=== PATIENT | male | born 1990 | race Caucasian/White ===

== ENCOUNTER 2020-10-04 15:38 | Observation (INO) | payer SELFPAY ==
[2020-10-04] VITALS (9 sets, daily range): BP systolic 94–129; BP diastolic 50–68; PULSE 110–126; RESP 18–26; TEMP 36.4–37.7; O2SAT 95–99; BMI 32.5
[2020-10-04 16:12] LABS: Add Manual Diff / Slide Review NO; Basophils Absolute Auto 100 /uL (0-100); Basophils Percent Auto 0.3 % (0-2); Eosinophils Absolute Auto 0 /uL (0-450); Eosinophils Percent Auto 0.1 % (2-4); Hematocrit 41.6 % (41-53); Hemoglobin 14.5 g/dL (13.5-17.5); Lymphocytes Absolute Auto 1500 /uL (1100-4500); Lymphocytes Percent Auto 6.6 % (25-40); Mean Corpuscular HGB Conc 34.9 % (30-36); Mean Corpuscular Hemoglobin 30.7 PG (26-34); Monocytes Absolute Auto 900 /uL (0-900); Monocytes Percent Auto 4.2 % (3-14); Neutrophils Absolute Auto 20300 /uL (1500-7000); Neutrophils Percent Auto 88.8 % (50-75); Platelet Count 240 X10^3/uL (150-400); Red Blood Cell Count 4.72 X10^6/uL (4.5-5.9); Red Cell Distribution Width 13.2 % (11.6-14.8); White Blood Cell Count 22.8 X10^3/uL (4.5-11.0)
[2020-10-04 16:18] LABS: INR 1.3 (0.9-1.3); Prothrombin Time 14.9 SECONDS (10.1-12.7)
[2020-10-04 16:20] LABS: PTT Partial Thromboplastin Tim 25 SECONDS (26.4-36.2)
--- NOTE | 2020-10-04 16:26 | ED_ITS ---
HPI - Abdominal Pain <Angel Harrisonrebeca [facility] - Last Filed: 10/04/20 20:45> General Chief Complaint: Abdominal Pain Stated Complaint: abdominal pain Time Seen by Provider: 10/04/20 15:42 Source: patient and other Mode of arrival: Family Vehicle Limitations: no limitations History of Present Illness HPI narrative: This is a 30-year-old male, current vapor, who has past medical history significant for substance abuse and childhood asthma presents to ED with chief complain of tense abdominal pain since last night. Patient reports he had smoked heroin last night. Patient reports the pain is causing him to have short of breath and spasm in muscles. Patient denies associated symptoms such as fever, chills, nausea or vomiting. Patient denies history of similar pain in the past. Patient reports pain increases with tensing abdominal muscle or coughing and improves with relaxing muscles. Patient denies history of blood clots, prolonged bed rest, recent surgery, tumor, recent travel. Patient denies back pain, history of hypertension, Marfan syndrome, AAA. Patient has last eaten at 10:00 a.m. pain is wrapped in sausage but did not aggravated pain. PCP Dr. Tovar and he was referred to ED from walk-in clinic for further evaluation. Related Data Allergies Allergy/AdvReac Type Severity Reaction Status Date / Time No Known Drug Allergies Allergy Verified 10/04/20 16:04 Review of Systems <Angel Harrisonrebeca [facility] - Last Filed: 10/04/20 20:45> Review of Systems Narrative: General: Denies fever, chills, fatigue, malaise, sweats. HEENT: Denies sinus pain, ear pain, sore throat, difficulty swallowing, dizziness. Respiratory: See HPI Cardiovascular: Denies chest pain, palpitations, orthopnea, edema. Gastrointestinal: See HPI : Denies dysuria, frequency, incontinence, hematuria, urinary retention. Musculoskeletal: Denies weakness, joint pain or bony pain. Skin: Denies rash, skin lesions, or other. Neurologic: Denies weakness, headache, numbness, change in speech, confusion, seizures, incoordination. Psychiatric: No concerning psychosocial issues. 12-point review of systems is negative except for those stated above. Patient History <Angel Christyrebeca [facility] Last Filed: 12/11/20 20:45> Medical History (Updated 12/11/20 @ 20:30 by REN Taylor) Asthma Patient denies significant medical history Surgical History (Updated 10/04/20 @ 20:30 by REN Talyor) No significant past surgical history Social History Smoking Status: Current every day smoker Smoking Status: Current every day smoker tobacco type: vaping alcohol intake frequency: 0-2 drinks per day Substance Use Type: marijuana, heroin and methamphetamine Exam <REN Le - Last Filed: 10/04/20 20:45> Narrative Exam Narrative: GEN: Alert, oriented x 3, obese male, and in no acute distress. Head: Normal cephalic, atraumatic. No scalp or temporal tenderness, palpable mass or rash. EYES: Pupils are equal, round, and reactive to light and accommodation. Extraocular muscles are intact bilaterally. There is no subconjunctival hemorrhage, exudate and sclera non-icteric. ENT: Hearing grossly intact. Nose without bleeding, purulent discharge or deviation. Mucous membrane moist, no mucosal lesion. Throat without erythema, tonsillar hypertrophy or exudate. Uvula in midline, airway patent. Neck: Trachea in midline. No JVD, non-tender without lymphadenopathy. No masses or thyroid megaly. Supple, non-tender and no meningeal signs. CARDIAC: Normal tachy rate and rhythm without murmurs, gallops, or rubs. No chest wall tenderness. No peripheral edema, cyanosis or pallor. Capillary refill is less than 2 seconds. RESPIRATORY: Lungs are rhonchi in all lobes. No cough, wheezes, rales. No stridor, respiratory distress, increase work of breathing, or accessary muscle used. ABD: Abdomen soft, obese abdomen, no significant tenderness to palpate. No guarding or rebound tenderness to palpate. Bowel sounds are normal in all 4 quadrants. There is no palpable masses or organomegaly. EXT: Full painless ROM of all extremities with no loss of sensation, strength, effusion or edema. SKIN: Cool, dry, normal color for patient. No erythema, lesions or rash over visible areas. BACK: Nontender without deformity or crepitance. No flank tenderness. NEUROLOGICAL: Alert and oriented to place, time and person. Sensation and motor function intact bilaterally. No facial droops, dysphasia. PSYCHIATRIC: Good judgement and reason, without hallucinations, abnormal affect or abnormal behaviors during the examination. Patient is not suicidal. Initial Vital Signs Initial Vital Signs: Vital Signs Temperature 97.6 F 10/04/20 15:56 Pulse Rate 126 H 10/04/20 15:56 Respiratory Rate 26 H 10/04/20 15:56 Blood Pressure 114/59 L 10/04/20 15:56 Pulse Oximetry 96 10/04/20 15:56 <Hosea Lynne DO - Last Filed: 10/07/20 17:58> Initial Vital Signs Initial Vital Signs: Vital Signs Temperature 97.6 F 10/04/20 15:56 Pulse Rate 126 H 10/04/20 15:56 Respiratory Rate 26 H 10/04/20 15:56 Blood Pressure 114/59 L 10/04/20 15:56 Pulse Oximetry 96 10/04/20 15:56 Scores <[facility] - Last Filed: 10/04/20 20:45> GCS Matteson coma scale eye opening: Spontaneous Matteson coma scale verbal response: Orientated Jon coma scale motor response: Obey commands Jon coma scale total score: 15 PERC Score Age greater than or equal to 50 years: No Heart rate greater than or equal to 100 bpm: Yes Room Air O2 Sat less than 95%: No Unilateral leg swelling: No Recent trauma or surgery: No Hemoptysis: No Prior PE or DVT: No Hormone Use: No Total PERC Score: 1 qSOFA Altered Mental Status (GCS <15): No Respiratory rate greater than/equal to 22: Yes Systolic blood pressure less than or equal to 100: No qSOFA Total: 1 0-1 Not High Risk 1-3 High risk Wells' Criteria for PE Clinical signs and symptoms of DVT: No PE is #1 Dx or equally likely: No Heart rate > 100: Yes Immobilization at least 3 days or surg in previous 4 weeks: No History of PE or DVT: No Hemoptysis: No Malignancy w/Treatment within 6 months or palliative: No Wells' PE Score total: 1.5 Course <REN Le - Last Filed: 10/04/20 20:45> Orders Ordered: Discontinued Medications Acetaminophen (Acetaminophen 325 Mg Tablet) 650 mg PO NOW ONE Stop: 10/04/20 17:18 Last Admin: 10/04/20 17:23 Dose: 650 mg Documented by: LINDSEY Acetaminophen (Acetaminophen 325 Mg Tablet) 650 mg PO Q6HR PRN PRN Reason: Fever/Mild Pain (1-3) Azithromycin (Azithromycin 250 Mg Tablet) 500 mg PO DAILY PIERRE Enoxaparin Sodium (Enoxaparin 40 Mg/0.4 Ml Syringe) 40 mg SUBCUT DAILY PIERRE Sodium Chloride (Normal Saline 0.9%) 1,000 mls @ 2,000 mls/hr IV BOLUS ONE Stop: 10/04/20 16:52 Last Infusion: 10/04/20 17:30 Dose: 0 mls/hr Documented by: Admin: 10/04/20 16:32 Dose: 2,000 mls/hr Documented by: RMARTIN Sodium Chloride (Normal Saline 0.9%) 1,000 mls @ 1,000 mls/hr IV BOLUS ONE Stop: 10/04/20 18:40 Last Infusion: 10/04/20 18:10 Dose: 0 mls/hr Documented by: Admin: 10/04/20 17:10 Dose: 1,000 mls/hr Documented by: LINDSEY Ceftriaxone Sodium/Dextrose (Rocephin) 2 gm in 50 mls @ 100 mls/hr IV NOW ONE Stop: 10/04/20 18:13 Ceftriaxone Sodium/Dextrose (Rocephin) 1 gm in 50 mls @ 100 mls/hr IV NOW ONE Stop: 10/04/20 18:16 Last Infusion: 10/04/20 18:41 Dose: 0 mls/hr Documented by: Admin: 10/04/20 17:51 Dose: 100 mls/hr Documented by: LINDSEY Ceftriaxone Sodium/Dextrose (Rocephin) 1 gm in 50 mls @ 100 mls/hr IV NOW ONE Stop: 10/04/20 18:48 Last Infusion: 10/04/20 19:13 Dose: 0 mls/hr Documented by: Admin: 10/04/20 18:50 Dose: 100 mls/hr Documented by: LINDSEY Sodium Chloride (Normal Saline 0.9%) 1,000 mls @ 125 mls/hr IV CONT PIERRE Sodium Chloride (Normal Saline 0.9%) 1,000 mls @ 100 mls/hr IV CONT PIERRE Ceftriaxone Sodium/Dextrose (Rocephin) 1 gm in 50 mls @ 100 mls/hr IV Q24H PIERRE Ketorolac Tromethamine (Ketorolac 60 Mg/2 Ml Vial) 15 mg IV NOW ONE Stop: 10/04/20 16:25 Last Admin: 10/04/20 16:33 Dose: 15 mg Documented by: RMNELIAIN Ondansetron HCl (Ondansetron 4 Mg/2 Ml Inj) 4 mg IV Q8HR PRN PRN Reason: Nausea And Vomiting Sennosides (Sennosides 8.6 Mg Tablet) 17.2 mg PO BEDTIME PIERRE Reevaluation(s) Reevaluation #1: Patient refusing 2nd IV start and blood cultures after reasons discussed by myself and 2 RNs. CBC came back as 22.8. Time: 16:40 Reevaluation #2: Patient again declined 2nd IV and blood culture. Time: 16:53 Reevaluation #3: Lab call back informing not enough blood sample for lactate after patient received 1 L of normal saline. RN attempted to draw from IVL but unsuccessful. Time: 17:30 Additional Reevaluation(s): 1800-Dr. Allan consulted for admission for pneumonia and she kindly accepted patient's admission. She recommended Rocephin 2 g IV instead of 1 g in addition to azithromycin 500 mg IV. She also recommended respiratory panel and sputum culture. Due to elevated D-dimer, she requested CT chest for PE study. 181-Dr. Allan informed that the patient again refused blood cultures at this time after a long talk about the importance of the test to treat the patient with antibiotic sensitivity to patient's illness and possible septicemia. Vital Signs Vital signs: Vital Signs - 8 hr 10/04/20 15:56 10/04/20 17:07 10/04/20 17:08 Temperature 97.6 F Pulse Rate 126 H 118 H 116 H Respiratory Rate 26 H Blood Pressure 114/59 L 94/50 L Pulse Oximetry 96 95 95 10/04/20 17:11 10/04/20 17:12 10/04/20 17:30 Temperature 99.9 F H Pulse Rate 114 H 115 H Respiratory Rate Blood Pressure 95/55 L 129/68 Pulse Oximetry 95 95 10/04/20 18:00 10/04/20 18:30 Temperature Pulse Rate 114 H 110 H Respiratory Rate Blood Pressure 127/58 L Pulse Oximetry 99 97 <Hosea Lynne, DO - Last Filed: 10/07/20 17:58> Orders Ordered: Discontinued Medications Acetaminophen (Acetaminophen 325 Mg Tablet) 650 mg PO NOW ONE Stop: 10/04/20 17:18 Last Admin: 10/04/20 17:23 Dose: 650 mg Documented by: LINDSEY Acetaminophen (Acetaminophen 325 Mg Tablet) 650 mg PO Q6HR PRN PRN Reason: Fever/Mild Pain (1-3) Azithromycin (Azithromycin 250 Mg Tablet) 500 mg PO DAILY PIERRE Enoxaparin Sodium (Enoxaparin 40 Mg/0.4 Ml Syringe) 40 mg SUBCUT DAILY PIERRE Sodium Chloride (Normal Saline 0.9%) 1,000 mls @ 2,000 mls/hr IV BOLUS ONE Stop: 10/04/20 16:52 Last Infusion: 10/04/20 17:30 Dose: 0 mls/hr Documented by: Admin: 10/04/20 16:32 Dose: 2,000 mls/hr Documented by: RMARTIN Sodium Chloride (Normal Saline 0.9%) 1,000 mls @ 1,000 mls/hr IV BOLUS ONE Stop: 10/04/20 18:40 Last Infusion: 10/04/20 18:10 Dose: 0 mls/hr Documented by: Admin: 10/04/20 17:10 Dose: 1,000 mls/hr Documented by: LINDSEY Ceftriaxone Sodium/Dextrose (Rocephin) 2 gm in 50 mls @ 100 mls/hr IV NOW ONE Stop: 10/04/20 18:13 Ceftriaxone Sodium/Dextrose (Rocephin) 1 gm in 50 mls @ 100 mls/hr IV NOW ONE Stop: 10/04/20 18:16 Last Infusion: 10/04/20 18:41 Dose: 0 mls/hr Documented by: Admin: 10/04/20 17:51 Dose: 100 mls/hr Documented by: LINDSEY Ceftriaxone Sodium/Dextrose (Rocephin) 1 gm in 50 mls @ 100 mls/hr IV NOW ONE Stop: 10/04/20 18:48 Last Infusion: 10/04/20 19:13 Dose: 0 mls/hr Documented by: Admin: 10/04/20 18:50 Dose: 100 mls/hr Documented by: MMINOR Sodium Chloride (Normal Saline 0.9%) 1,000 mls @ 125 mls/hr IV CONT PIERRE Sodium Chloride (Normal Saline 0.9%) 1,000 mls @ 100 mls/hr IV CONT PIERRE Ceftriaxone Sodium/Dextrose (Rocephin) 1 gm in 50 mls @ 100 mls/hr IV Q24H PIERRE Ketorolac Tromethamine (Ketorolac 60 Mg/2 Ml Vial) 15 mg IV NOW ONE Stop: 10/04/20 16:25 Last Admin: 10/04/20 16:33 Dose: 15 mg Documented by: RMARTIN Ondansetron HCl (Ondansetron 4 Mg/2 Ml Inj) 4 mg IV Q8HR PRN PRN Reason: Nausea And Vomiting Sennosides (Sennosides 8.6 Mg Tablet) 17.2 mg PO BEDTIME PIERRE Vital Signs Vital signs: Vital Signs - 8 hr 10/04/20 15:56 10/04/20 17:07 10/04/20 17:08 Temperature 97.6 F Pulse Rate 126 H 118 H 116 H Respiratory Rate 26 H Blood Pressure 114/59 L 94/50 L Pulse Oximetry 96 95 95 10/04/20 17:11 10/04/20 17:12 10/04/20 17:30 Temperature 99.9 F H Pulse Rate 114 H 115 H Respiratory Rate Blood Pressure 95/55 L 129/68 Pulse Oximetry 95 95 10/04/20 18:00 10/04/20 18:30 Temperature Pulse Rate 114 H 110 H Respiratory Rate Blood Pressure 127/58 L Pulse Oximetry 99 97 MDM - Abdominal Pain <REN Le - Last Filed: 10/04/20 20:45> Differential Diagnosis Differential diagnosis: Likely acute appendicitis and other (Pneumonia, pyelonephritis) Medical Records Attestation: I reviewed the patient's medical records. Lab Data Attestation: I reviewed the patient's lab results. Result diagrams: 10/04/20 16:00 10/04/20 16:00 Labs: Lab Results 10/04/20 10/04/20 10/04/20 Range/Units 16:00 16:00 16:00 WBC 22.8 H (4.5-11.0) X10^3/uL RBC 4.72 (4.5-5.9) X10^6/uL Hgb 14.5 (13.5-17.5) g/dL Hct 41.6 (41-53) % MCV 88.0 (80-100) fL MCH 30.7 (26-34) PG MCHC 34.9 (30-36) % RDW 13.2 (11.6-14.8) % Plt Count 240 (150-400) X10^3/uL Neut % (Auto) 88.8 H (50-75) % Lymph % (Auto) 6.6 L (25-40) % Trimble % (Auto) 4.2 (3-14) % Eos % (Auto) 0.1 L (2-4) % Baso % (Auto) 0.3 (0-2) % Neut # (Auto) 19395 H (0880-4129) /uL Lymph # (Auto) 1500 (7670-4190) /uL Trimble # (Auto) 900 (0-900) /uL Eos # (Auto) 0 (0-450) /uL Baso # (Auto) 100 (0-100) /uL PT 14.9 H (10.1-12.7) SECONDS INR 1.3 (0.9-1.3) APTT 25 L (26.4-36.2) SECONDS D-Dimer (<230) ng/mL Sodium 130 L (137-145) mmol/L Potassium 4.3 (3.4-5.1) mmol/L Chloride 97 L (98-107) mmol/L Carbon Dioxide 24 (22-32) mmol/L BUN 14 (9-20) mg/dL Creatinine 0.93 (0.66-1.25) mg/dL Estimated GFR > 60.0 (>60) mL/min BUN/Creatinine Ratio 15.1 (6-22) Glucose 132 H (70-100) mg/dL Hemoglobin A1c (4.0-6.0) % Calcium 9.6 (8.4-10.2) mg/dL Total Bilirubin 1.7 H (0.2-1.3) mg/dL AST 33 (17-59) IU/L ALT 40 (<50) IU/L Alkaline Phosphatase 59 (38-126) U/L Total Creatine Kinase (55-170) U/L CK-MB (CK-2) CK-MB (CK-2) Rel Index Troponin I (0.01-0.034) ng/mL Total Protein 8.3 H (6.3-8.2) g/dL Albumin 4.5 (3.5-5.0) g/dL Globulin 3.8 (1.7-4.1) g/dL Albumin/Globulin Ratio 1.2 (1.0-2.8) Lipase 39 (23-300) U/L Procalcitonin (<0.5) ng/mL Chlamy pneumoniae PCR (Not Detect) Adenovirus (PCR) (Not Detect) B.parapertussis DNA PCR (Not Detect) Coronavirus OC43 (PCR) (Not Detect) Coronavirus HKU1 (PCR) (Not Detect) Coronavirus 229E (PCR) (Not Detect) COVID-19 PCR (Negative) Coronavirus NL63 (PCR) (Not Detect) Human Metapneumovir PCR (Not Detect) Influenza Type A (PCR) (Not Detect) Influenza Type B (PCR) (Not Detect) M. pneumoniae (PCR) (Not Detect) Parainfluenza 1 (PCR) (Not Detect) Parainfluenza 2 (PCR) (Not Detect) Parainfluenza 3 (PCR) (Not Detect) Parainfluenza 4 (PCR) (Not Detect) RSV (PCR) (Not Detect) Entero/Rhino (PCR) (Not Detect) 10/04/20 10/04/20 10/04/20 Range/Units 16:00 16:00 16:00 WBC (4.5-11.0) X10^3/uL RBC (4.5-5.9) X10^6/uL Hgb (13.5-17.5) g/dL Hct (41-53) % MCV (80-100) fL MCH (26-34) PG MCHC (30-36) % RDW (11.6-14.8) % Plt Count (150-400) X10^3/uL Neut % (Auto) (50-75) % Lymph % (Auto) (25-40) % Trimble % (Auto) (3-14) % Eos % (Auto) (2-4) % Baso % (Auto) (0-2) % Neut # (Auto) (6669-2745) /uL Lymph # (Auto) (3769-6033) /uL Trimble # (Auto) (0-900) /uL Eos # (Auto) (0-450) /uL Baso # (Auto) (0-100) /uL PT (10.1-12.7) SECONDS INR (0.9-1.3) APTT (26.4-36.2) SECONDS D-Dimer 743 H (<230) ng/mL Sodium (137-145) mmol/L Potassium (3.4-5.1) mmol/L Chloride (98-107) mmol/L Carbon Dioxide (22-32) mmol/L BUN (9-20) mg/dL Creatinine (0.66-1.25) mg/dL Estimated GFR (>60) mL/min BUN/Creatinine Ratio (6-22) Glucose (70-100) mg/dL Hemoglobin A1c (4.0-6.0) % Calcium (8.4-10.2) mg/dL Total Bilirubin (0.2-1.3) mg/dL AST (17-59) IU/L ALT (<50) IU/L Alkaline Phosphatase (38-126) U/L Total Creatine Kinase 69 (55-170) U/L CK-MB (CK-2) TNP CK-MB (CK-2) Rel Index TNP Troponin I < 0.012 (0.01-0.034) ng/mL Total Protein (6.3-8.2) g/dL Albumin (3.5-5.0) g/dL Globulin (1.7-4.1) g/dL Albumin/Globulin Ratio (1.0-2.8) Lipase (23-300) U/L Procalcitonin 1.05 H (<0.5) ng/mL Chlamy pneumoniae PCR (Not Detect) Adenovirus (PCR) (Not Detect) B.parapertussis DNA PCR (Not Detect) Coronavirus OC43 (PCR) (Not Detect) Coronavirus HKU1 (PCR) (Not Detect) Coronavirus 229E (PCR) (Not Detect) COVID-19 PCR (Negative) Coronavirus NL63 (PCR) (Not Detect) Human Metapneumovir PCR (Not Detect) Influenza Type A (PCR) (Not Detect) Influenza Type B (PCR) (Not Detect) M. pneumoniae (PCR) (Not Detect) Parainfluenza 1 (PCR) (Not Detect) Parainfluenza 2 (PCR) (Not Detect) Parainfluenza 3 (PCR) (Not Detect) Parainfluenza 4 (PCR) (Not Detect) RSV (PCR) (Not Detect) Entero/Rhino (PCR) (Not Detect) 10/04/20 10/04/20 10/04/20 Range/Units 16:00 17:39 18:16 WBC (4.5-11.0) X10^3/uL RBC (4.5-5.9) X10^6/uL Hgb (13.5-17.5) g/dL Hct (41-53) % MCV (80-100) fL MCH (26-34) PG MCHC (30-36) % RDW (11.6-14.8) % Plt Count (150-400) X10^3/uL Neut % (Auto) (50-75) % Lymph % (Auto) (25-40) % Trimble % (Auto) (3-14) % Eos % (Auto) (2-4) % Baso % (Auto) (0-2) % Neut # (Auto) (3807-5410) /uL Lymph # (Auto) (0806-8647) /uL Trimble # (Auto) (0-900) /uL Eos # (Auto) (0-450) /uL Baso # (Auto) (0-100) /uL PT (10.1-12.7) SECONDS INR (0.9-1.3) APTT (26.4-36.2) SECONDS D-Dimer (<230) ng/mL Sodium (137-145) mmol/L Potassium (3.4-5.1) mmol/L Chloride (98-107) mmol/L Carbon Dioxide (22-32) mmol/L BUN (9-20) mg/dL Creatinine (0.66-1.25) mg/dL Estimated GFR (>60) mL/min BUN/Creatinine Ratio (6-22) Glucose (70-100) mg/dL Hemoglobin A1c 5.5 (4.0-6.0) % Calcium (8.4-10.2) mg/dL Total Bilirubin (0.2-1.3) mg/dL AST (17-59) IU/L ALT (<50) IU/L Alkaline Phosphatase (38-126) U/L Total Creatine Kinase (55-170) U/L CK-MB (CK-2) CK-MB (CK-2) Rel Index Troponin I (0.01-0.034) ng/mL Total Protein (6.3-8.2) g/dL Albumin (3.5-5.0) g/dL Globulin (1.7-4.1) g/dL Albumin/Globulin Ratio (1.0-2.8) Lipase (23-300) U/L Procalcitonin (<0.5) ng/mL Chlamy pneumoniae PCR Not detected (Not Detect) Adenovirus (PCR) Not detected (Not Detect) B.parapertussis DNA PCR Not detected (Not Detect) Coronavirus OC43 (PCR) Not detected (Not Detect) Coronavirus HKU1 (PCR) Not detected (Not Detect) Coronavirus 229E (PCR) Not detected (Not Detect) COVID-19 PCR Negative Not detected (Negative) Coronavirus NL63 (PCR) Not detected (Not Detect) Human Metapneumovir PCR Not detected (Not Detect) Influenza Type A (PCR) Not detected (Not Detect) Influenza Type B (PCR) Not detected (Not Detect) M. pneumoniae (PCR) Not detected (Not Detect) Parainfluenza 1 (PCR) Not detected (Not Detect) Parainfluenza 2 (PCR) Not detected (Not Detect) Parainfluenza 3 (PCR) Not detected (Not Detect) Parainfluenza 4 (PCR) Not detected (Not Detect) RSV (PCR) Not detected (Not Detect) Entero/Rhino (PCR) Not detected (Not Detect) Imaging Data Chest x-ray: Radiologist's Impression: [address] [id number] ReportSigned Patient: Xiomara Watt#: [id number]: 1990Acct:[id number]/Sex: te of Service: 10/04/20Loc: EDAccession Number: [id number] Procedure: XR chest 2V Ordering Provider: Angel Meneses PROCEDURE: XR CHEST 2V INDICATIONS: elevated wbc, rhonchi, abd pain TECHNIQUE: 2 views of the chest were acquired. COMPARISON: None. FINDINGS: Surgical changes and devices: None. Lungs and pleura: No definite pleural effusion or pneumothorax. Low lung volumes and posterior ill-defined patchy opacities in the lung bases, and in the retrocardiac region Mediastinum: Mediastinal contours are normal. Heart size is normal. Bones and chest wall: No suspicious bony abnormalities. Soft tissues appear unremarkable. IMPRESSION: Left basilar pneumonia Dictated by: Bassam Rico M.D. on 10/04/2020 at 16:58 Approved by: Bassam Rico M.D. on 10/04/2020 at 16:59 ECG Data Attestation: I personally reviewed and interpreted this ECG as follows: Prior ECG tracings: not available for review Interpretation: Sinus tachycardia rate at 118. NOrmal Sebastian. CA interval 146, QRS duration 90, QT/QTC 290/406. No acute ST changes MDM Narrative Medical decision making narrative: This is a 30-year-old male who has past me dical history significant for asthma and substance abuse with smoking heroin and marijuana presents to ED with abdominal discomfort and tachycardia. Patient appears to be toxic upon evaluation. Initial vital sign shows tachycardia of 126, tachypnea of 26, with O2 said and 96% in room air with BP in 114/59. Physical exam appreciated coarse lung sounds bilaterally. Chest x-ray was ordered which indicates posterior ill-defined patchy opacity and in the retrocardiac region. EKG shows sinus tachycardia without acute ST changes. CBC shows significantly elevated leukocytosis of 22.8 and neutrophils with lymphocytopenia and eosinophils. Given patient had pleuritic chest pain and tachycardia with concerns for pulmonary embolism, D-dimer was obtained. PT was slightly elevated up to 14.9 with elevated D-dimer of 743 for age adjusted. Chemistry test shows hyponatremia of 130, nonfasting glucose slightly elevated to 132. Elevated total bilirubin of 1.7 with normal LFTs. Total protein was slightly elevated to 8.3. Normal lipase of 39. Procalcitonin is elevated to 1.05 with negative cardiac enzymes. COVID test and respiratory panel was negative. With elevated D-dimer, chest CT for PE was obtained and it indicates no pulmonary embolism but lobular pneumonia in left lower lobe. Pelvis and abdomen CT was negative for acute findings. Patient declined second IV start, 2 sets of blood culture and lactate draw after we discussed several times of importance of this test and to guide the course of treatment. Patient agrees with daily a.m. left draw when he gets admitted to hospital. Findings were discussed with and she kindly accepted the patient's care. Patient received 2 L of normal saline and continue with 125 mL of normal saline. He received Toradol 15 mg IV and antibiotic medication coverage with 2 g of Rocephin and azithromycin 500 mg for community-acquired pneumonia. Patient was admitted under medical service for pneumonia treatment for IV antibiotic medication. <Hosea Lynne, DO - Last Filed: 10/07/20 17:58> Lab Data Labs: Lab Results 10/04/20 10/04/20 10/04/20 Range/Units 16:00 16:00 16:00 WBC 22.8 H (4.5-11.0) X10^3/uL RBC 4.72 (4.5-5.9) X10^6/uL Hgb 14.5 (13.5-17.5) g/dL Hct 41.6 (41-53) % MCV 88.0 (80-100) fL MCH 30.7 (26-34) PG MCHC 34.9 (30-36) % RDW 13.2 (11.6-14.8) % Plt Count 240 (150-400) X10^3/uL Neut % (Auto) 88.8 H (50-75) % Lymph % (Auto) 6.6 L (25-40) % [place] % (Auto) 4.2 (3-14) % Eos % (Auto) 0.1 L (2-4) % Baso % (Auto) 0.3 (0-2) % Neut # (Auto) 75514 H (9645-6756) /uL Lymph # (Auto) 1500 (9072-3672) /uL Tr[place]ble # (Auto) 900 (0-900) /uL Eos # (Auto) 0 (0-450) /uL Baso # (Auto) 100 (0-100) /uL PT 14.9 H (10.1-12.7) SECONDS INR 1.3 (0.9-1.3) APTT 25 L (26.4-36.2) SECONDS D-Dimer (<230) ng/mL Sodium 130 L (137-145) mmol/L Potassium 4.3 (3.4-5.1) mmol/L Chloride 97 L (98-107) mmol/L Carbon Dioxide 24 (22-32) mmol/L BUN 14 (9-20) mg/dL Creatinine 0.93 (0.66-1.25) mg/dL Estimated GFR > 60.0 (>60) mL/min BUN/Creatinine Ratio 15.1 (6-22) Glucose 132 H (70-100) mg/dL Hemoglobin A1c (4.0-6.0) % Calcium 9.6 (8.4-10.2) mg/dL Total Bilirubin 1.7 H (0.2-1.3) mg/dL AST 33 (17-59) IU/L ALT 40 (<50) IU/L Alkaline Phosphatase 59 (38-126) U/L Total Creatine Kinase (55-170) U/L CK-MB (CK-2) CK-MB (CK-2) Rel Index Troponin I (0.01-0.034) ng/mL Total Protein 8.3 H (6.3-8.2) g/dL Albumin 4.5 (3.5-5.0) g/dL Globulin 3.8 (1.7-4.1) g/dL Albumin/Globulin Ratio 1.2 (1.0-2.8) Lipase 39 (23-300) U/L Procalcitonin (<0.5) ng/mL Chlamy pneumoniae PCR (Not Detect) Adenovirus (PCR) (Not Detect) B.parapertussis DNA PCR (Not Detect) Coronavirus OC43 (PCR) (Not Detect) Coronavirus HKU1 (PCR) (Not Detect) Coronavirus 229E (PCR) (Not Detect) COVID-19 PCR (Negative) Coronavirus NL63 (PCR) (Not Detect) Human Metapneumovir PCR (Not Detect) Influenza Type A (PCR) (Not Detect) Influenza Type B (PCR) (Not Detect) M. pneumoniae (PCR) (Not Detect) Parainfluenza 1 (PCR) (Not Detect) Parainfluenza 2 (PCR) (Not Detect) Parainfluenza 3 (PCR) (Not Detect) Parainfluenza 4 (PCR) (Not Detect) RSV (PCR) (Not Detect) Entero/Rhino (PCR) (Not Detect) 10/04/20 10/04/20 10/04/20 Range/Units 16:00 16:00 16:00 WBC (4.5-11.0) X10^3/uL RBC (4.5-5.9) X10^6/uL Hgb (13.5-17.5) g/dL Hct (41-53) % MCV (80-100) fL MCH (26-34) PG MCHC (30-36) % RDW (11.6-14.8) % Plt Count (150-400) X10^3/uL Neut % (Auto) (50-75) % Lymph % (Auto) (25-40) % [place] % (Auto) (3-14) % Eos % (Auto) (2-4) % Baso % (Auto) (0-2) % Neut # (Auto) (5927-0838) /uL Lymph # (Auto) (9739-9477) /uL [place] # (Auto) (0-900) /uL Eos # (Auto) (0-450) /uL Baso # (Auto) (0-100) /uL PT (10.1-12.7) SECONDS INR (0.9-1.3) APTT (26.4-36.2) SECONDS D-Dimer 743 H (<230) ng/mL Sodium (137-145) mmol/L Potassium (3.4-5.1) mmol/L Chloride (98-107) mmol/L Carbon Dioxide (22-32) mmol/L BUN (9-20) mg/dL Creatinine (0.66-1.25) mg/dL Estimated GFR (>60) mL/min BUN/Creatinine Ratio (6-22) Glucose (70-100) mg/dL Hemoglobin A1c (4.0-6.0) % Calcium (8.4-10.2) mg/dL Total Bilirubin (0.2-1.3) mg/dL AST (17-59) IU/L ALT (<50) IU/L Alkaline Phosphatase (38-126) U/L Total Creatine Kinase 69 (55-170) U/L CK-MB (CK-2) TNP CK-MB (CK-2) Rel Index TNP Troponin I < 0.012 (0.01-0.034) ng/mL Total Protein (6.3-8.2) g/dL Albumin (3.5-5.0) g/dL Globulin (1.7-4.1) g/dL Albumin/Globulin Ratio (1.0-2.8) Lipase (23-300) U/L Procalcitonin 1.05 H (<0.5) ng/mL Chlamy pneumoniae PCR (Not Detect) Adenovirus (PCR) (Not Detect) B.parapertussis DNA PCR (Not Detect) Coronavirus OC43 (PCR) (Not Detect) Coronavirus HKU1 (PCR) (Not Detect) Coronavirus 229E (PCR) (Not Detect) COVID-19 PCR (Negative) Coronavirus NL63 (PCR) (Not Detect) Human Metapneumovir PCR (Not Detect) Influenza Type A (PCR) (Not Detect) Influenza Type B (PCR) (Not Detect) M. pneumoniae (PCR) (Not Detect) Parainfluenza 1 (PCR) (Not Detect) Parainfluenza 2 (PCR) (Not Detect) Parainfluenza 3 (PCR) (Not Detect) Parainfluenza 4 (PCR) (Not Detect) RSV (PCR) (Not Detect) Entero/Rhino (PCR) (Not Detect) 10/04/20 10/04/20 10/04/20 Range/Units 16:00 17:39 18:16 WBC (4.5-11.0) X10^3/uL RBC (4.5-5.9) X10^6/uL Hgb (13.5-17.5) g/dL Hct (41-53) % MCV (80-100) fL MCH (26-34) PG MCHC (30-36) % RDW (11.6-14.8) % Plt Count (150-400) X10^3/uL Neut % (Auto) (50-75) % Lymph % (Auto) (25-40) % [place] % (Auto) (3-14) % Eos % (Auto) (2-4) % Baso % (Auto) (0-2) % Neut # (Auto) (1173-3821) /uL Lymph # (Auto) (6717-7862) /uL [place] # (Auto) (0-900) /uL Eos # (Auto) (0-450) /uL Baso # (Auto) (0-100) /uL PT (10.1-12.7) SECONDS INR (0.9-1.3) APTT (26.4-36.2) SECONDS D-Dimer (<230) ng/mL Sodium (137-145) mmol/L Potassium (3.4-5.1) mmol/L Chloride (98-107) mmol/L Carbon Dioxide (22-32) mmol/L BUN (9-20) mg/dL Creatinine (0.66-1.25) mg/dL Estimated GFR (>60) mL/min BUN/Creatinine Ratio (6-22) Glucose (70-100) mg/dL Hemoglobin A1c 5.5 (4.0-6.0) % Calcium (8.4-10.2) mg/dL Total Bilirubin (0.2-1.3) mg/dL AST (17-59) IU/L ALT (<50) IU/L Alkaline Phosphatase (38-126) U/L Total Creatine Kinase (55-170) U/L CK-MB (CK-2) CK-MB (CK-2) Rel Index Troponin I (0.01-0.034) ng/mL Total Protein (6.3-8.2) g/dL Albumin (3.5-5.0) g/dL Globulin (1.7-4.1) g/dL Albumin/Globulin Ratio (1.0-2.8) Lipase (23-300) U/L Procalcitonin (<0.5) ng/mL Chlamy pneumoniae PCR Not detected (Not Detect) Adenovirus (PCR) Not detected (Not Detect) B.parapertussis DNA PCR Not detected (Not Detect) Coronavirus OC43 (PCR) Not detected (Not Detect) Coronavirus HKU1 (PCR) Not detected (Not Detect) Coronavirus 229E (PCR) Not detected (Not Detect) COVID-19 PCR Negative Not detected (Negative) Coronavirus NL63 (PCR) Not detected (Not Detect) Human Metapneumovir PCR Not detected (Not Detect) Influenza Type A (PCR) Not detected (Not Detect) Influenza Type B (PCR) Not detected (Not Detect) M. pneumoniae (PCR) Not detected (Not Detect) Parainfluenza 1 (PCR) Not detected (Not Detect) Parainfluenza 2 (PCR) Not detected (Not Detect) Parainfluenza 3 (PCR) Not detected (Not Detect) Parainfluenza 4 (PCR) Not detected (Not Detect) RSV (PCR) Not detected (Not Detect) Entero/Rhino (PCR) Not detected (Not Detect) Discharge Plan Departure Patient Disposition: Admitted As Inpatient Clinical Impression: Pneumonia Qualifiers: Pneumonia type: due to unspecified organism Laterality: left Lung location: lower lobe of lung Qualified Code(s): J18.9 - Pneumonia, unspecified organism Admit Date/Time: 10/04/20 18:37 Admit Provider: Jessica Allan <Hosea Lynne, - Last Filed: 10/07/20 17:58> Cosign ED Attending Cosignature Attestation: Dr Lynne Co-Sign Statement: I was available for consultation during this patient's emergency department visit. This chart is signed by myself for administrative purposes only. I did not have direct contact with this patient during this visit. They were seen ind ependently by the APC.
[2020-10-04 16:29] LABS: Alanine Aminotransferase 40 IU/L (<50); Albumin 4.5 g/dL (3.5-5.0); Albumin Globulin Ratio 1.2 (1.0-2.8); Alkaline Phosphatase 59 U/L (38-126); Aspartate Aminotransferase 33 IU/L (17-59); BUN Creatinine Ratio 15.1 (6-22); Bilirubin Total 1.7 mg/dL (0.2-1.3); Blood Urea Nitrogen 14 mg/dL (9-20); Calcium 9.6 mg/dL (8.4-10.2); Carbon Dioxide 24 mmol/L (22-32); Chloride 97 mmol/L (98-107); Estimated Glomerular Filt Rate > 60.0 mL/min (>60); Globulin 3.8 g/dL (1.7-4.1); Glucose 132 mg/dL (70-100); HEMOLYSIS 17 (0-50); Lipase 39 U/L (23-300); Potassium 4.3 mmol/L (3.4-5.1); Sodium 130 mmol/L (137-145); Total Protein 8.3 g/dL (6.3-8.2)
[2020-10-04] MEDS: SODIUM CHLORIDE 0.9% 1,000 ML 2000 ML IV (16:32)
[2020-10-04] MEDS: KETOROLAC 60 MG/2 ML VIAL 15 MG IV (16:33)
--- NOTE | 2020-10-04 16:53 | DI.CT.S_ITS ---
PROCEDURE: CT ABDOMEN PELVIS W CON INDICATIONS: abd pain, sob, elevated wbc TECHNIQUE: After the administration of intravenous contrast, 5 mm thick sections acquired from the diaphragm to the symphysis. 5 mm coronal and sagittal reformats were acquired. For radiation dose reduction, the following was used: automated exposure control, adjustment of mA and/or kV according to patient size. COMPARISON: None. FINDINGS: Image quality: Excellent. ABDOMEN: Lung bases: There is lobar consolidation posteriorly within the left lower lobe with associated air bronchograms consistent with pneumonia. Mild dependent atelectasis is also demonstrated bilaterally. No pleural effusions. Heart size is normal. Solid organs: Evaluation of the liver demonstrates no focal hepatic lesions. The gallbladder is distended without calcified gallstones, wall thickening, or pericholecystic fluid. Biliary system is non-dilated. Pancreas enhances normally. No peripancreatic fat stranding or fluid collections. No pancreatic duct dilatation. The spleen is normal in size. No adrenal nodules. Kidneys demonstrate no hydronephrosis. Peritoneum and bowel: Bowel loops demonstrate normal wall thickness and caliber. No pericecal inflammatory changes to suggest appendicitis. No free fluid or air. Nodes and vessels: No retroperitoneal or mesenteric adenopathy by size criteria. Aorta and inferior vena cava are normal in size. Miscellaneous: No ventral hernias. PELVIS: Genitourinary: Bladder wall thickness is normal. Miscellaneous: No inguinal hernias or adenopathy. Bones: No suspicious bony lesions. No vertebral body compression fractures. IMPRESSION: 1. Confluent consolidation within the left lower lobe posteriorly consistent with lobar pneumonia. 2. No definite acute intra-abdominal abnormality. Dictated by: Juice Covarrubias M.D. on 10/04/2020 at 17:18 Approved by: Juice Covarrubias M.D. on 10/04/2020 at 17:21
[2020-10-04] MEDS: SODIUM CHLORIDE 0.9% 1,000 ML 1000 ML IV (17:10)
[2020-10-04] MEDS: ACETAMINOPHEN 325 MG TABLET 650 MG PO (17:23)
[2020-10-04 17:37] LABS: D Dimer 743 ng/mL (<230)
[2020-10-04 17:43] LABS: Creatine Kinase 69 U/L (55-170)
[2020-10-04] MEDS: CEFTRIAXONE 1 GM/50 ML FROZ.PIGGY IV ×2 (17:51→18:50)
[2020-10-04 17:56] LABS: Troponin I < 0.012 ng/mL (0.01-0.034)
--- NOTE | 2020-10-04 18:00 | DI.CT.S_ITS ---
PROCEDURE: CT ANGIO CHEST PE PROTOCOL INDICATIONS: elevated d dimer TECHNIQUE: After the administration of intravenous contrast, 2 mm thick sections acquired from the pulmonary apices to the posterior costophrenic angles. 3-dimensional maximum intensity projection (MIP) coronal and sagittal reformats were then acquired through the thorax. For radiation dose reduction, the following was used: automated exposure control, adjustment of mA and/or kV according to patient size. COMPARISON: [facility], CT, CT ABDOMEN PELVIS W CON, 10/04/2020, 16:56. [facility], CR, XR CHEST 2V, 10/04/2020, 16:41. FINDINGS: Image quality: Excellent. Pulmonary arteries: Pulmonary arteries are normal in size, and demonstrate no intraluminal filling defects to suggest central pulmonary embolism. Lungs and pleura: There is confluent airspace consolidation within the left lower lobe with associated air bronchograms. Mild dependent atelectasis is also demonstrated bilaterally. No pleural effusions or pneumothorax. Central and peripheral airways are patent. Mediastinum: Heart size is normal, without pericardial effusion. There is indistinct soft tissue in the anterior mediastinum likely representing residual thymus. No mediastinal or hilar adenopathy by size criteria. There are prominent subcentimeter mediastinal and hilar lymph nodes which are nonspecific but likely reactive. Thoracic aorta is normal in caliber and enhancement. Esophagus is normal in caliber, without hiatal hernia. Bones and chest wall: No suspicious bony lesions. Ribs and thoracic spine appear intact throughout. No axillary or supraclavicular adenopathy. Abdomen: Visualized upper abdominal solid organs appear normal in the early arterial phase of enhancement. IMPRESSION: 1. Confluent consolidation within the left lower lobe medially. Findings are compatible with lobar pneumonia. 2. No evidence of pulmonary embolism. Dictated by: Juice Covarrubias M.D. on 10/04/2020 at 19:26 Approved by: Juice Covarrubias M.D. on 10/04/2020 at 19:30
[2020-10-04 18:06] LABS: COVID19 -Nasal RAPID Negative (Negative)
[2020-10-04 18:14] LABS: Procalcitonin 1.05 ng/mL (<0.5)
[2020-10-04 19:09] LABS: Adenovirus Not Detected (Not Detect); Bordetella pertussis Not Detected (Not Detect); Chlamydophila pneumoniae Not Detected (Not Detect); Coronavirus 229E Not Detected (Not Detect); Coronavirus HKU1 Not Detected (Not Detect); Coronavirus NL 63 Not Detected (Not Detect); Coronavirus OC43 Not Detected (Not Detect); Human Metapneumovirus Not Detected (Not Detect); Human Rhinovirus/Enterovirus Not Detected (Not Detect); Influenza A Not Detected (Not Detect); Influenza B Not Detected (Not Detect); Mycoplasma pneumoniae Not Detected (Not Detect); Parainfluenza Virus 1 Not Detected (Not Detect); Parainfluenza Virus 2 Not Detected (Not Detect); Parainfluenza Virus 3 Not Detected (Not Detect); Parainfluenza Virus 4 Not Detected (Not Detect); Respiratory Syncytial Virus Not Detected (Not Detect); SARS- CoV-2 Not Detected (Not Detecte)
--- NOTE | 2020-10-04 19:19 | PC.NURSE ---
report given to JONAS Guardado on AC
--- NOTE | 2020-10-04 20:12 | PC.NURSE ---
On walking into patients room I noted that he was going into the bathroom with a small brown zippered bag. I asked if there were drugs in the bag and he said yes, that is was his personal stuff. I asked him to give the bag to his girlfriend and asked her to take it out of the hospital. An explanation was given that while in the hospital, we would administer only the drugs the ordered and they could conflict with what he was taking from home. He complied with this request.
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
[2020-10-04 20:33] LABS: Hemoglobin A1C% w Est Avg Glu 5.5 % (4.0-6.0)
--- NOTE | 2020-10-04 21:45 | PC.NURSE ---
Patient was in bathroom for a long period of time. Nurse attempted to open door to check on. Door was locked, patient states I'm constipated, I'll be a while. Patient's friend was witnessed handing bag to patient as he was entering into the bathroom, was asked by nurse to hand it over to friend to remove from room. Patient's friend was seen leaving room. Patient was asked to remove clothing when he finished in bathroom. Brown leather bag was seen in patient's pants. Patient was asked to hand over bag, patient declined. Patient was asked by this nurse what was in his bag, Patient reported, my drugs. This nurse again asked for the bag, patient declined. Patient was asked if he used drugs while he was locked in bathroom, He declined doing any drugs. Patient was asked again to hand over bag, he declined. Stated, I can't not do drugs while I am here, I will with-drawl, If I can not use I will need to leave right now. Explained drug use is not tolerated at hospital and that he needed to hand over his bag over to staff. Patient refused and asked to be unhooked from IV so he could dress and leave. This nurse explained to the patient how important it was for him to stay and cont. health care. Patient cont. to refuse to stay. Patient IV was removed, patient got dressed and walked out against medical advice.
== END 2020-10-04 20:35 | disposition left against medical advice (07) ==
LOC: ED 18:38 → AC 20:48
PROVIDERS: Nurse Practitioner Family; Admitting Provider Internal Medicine; Emergency Provider Nurse Practitioner Family; Referring Provider Nurse Practitioner Family; Visit Provider Internal Medicine
DX: J18.9 Pneumonia, unspecified organism (principal); R10.9 Unspecified abdominal pain; F11.90 Opioid use, unspecified, uncomplicated; F15.90 Other stimulant use, unspecified, uncomplicated; F12.90 Cannabis use, unspecified, uncomplicated; Z72.0 Tobacco use; J45.909 Unspecified asthma, uncomplicated; Z53.29 Procedure and treatment not carried out because of patient's decision for other reasons; Z11.59 Encounter for screening for other viral diseases
CPT/HCPCS: 36415; 71046; 71275; 74177; 80053; 81003; 82550; 83036; 83690; 84145; 84484; 85025; 85379; 85610; 85730; 87070; 87205; 87633; 87635; 93005; 93010; 96361; 96365; 96375; 99284; G0378; J1885; Q9967

== ENCOUNTER 2021-09-09 23:11 | Emergency (ER) | payer SELFPAY ==
[2021-09-09 23:28] VITALS: BP 128/63; PULSE 108; RESP 15; TEMP 36.8; O2SAT 99; BMI 34.2
[2021-09-10 00:57] VITALS: BP 148/81; PULSE 107; TEMP 37; O2SAT 99
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
--- NOTE | 2021-09-10 02:16 | DI.RAD.S_ITS ---
PROCEDURE: XR FOOT LT MIN 3V INDICATIONS: post reduction TECHNIQUE: 3 views of the foot were acquired. COMPARISON: [facility] ([place]), CR, XR FOOT LT MIN 3V, 09/09/2021, 15:18. FINDINGS: Bones: Mild residual subluxation at the 1st MTP joint although markedly improved. Unchanged appearance of intra-articular fracture involving the distal phalanx of the great toe. Soft tissues: Diffuse forefoot soft tissue swelling. IMPRESSION: Mild residual subluxed appearance of the 1st MTP joint, although improved, status post reduction. Redemonstrated intra-articular fracture involving the distal phalanx of the great toe. Dictated by: Bassam Rico M.D. on 09/10/2021 at 9:04 Approved by: Bassam Rico M.D. on 09/10/2021 at 9:46
[2021-09-10] MEDS: cephALEXin 250 MG PREPACK 1 BOTTLE MISC (02:23)
[2021-09-10] MEDS: IBUPROFEN 400 MG TABLET 800 MG PO (02:23)
[2021-09-10] MEDS: BACITRACIN OINT 0.9 GM PCKT 1 APPLIC TOP (02:24)
[2021-09-10 03:31] VITALS: BP 137/66; PULSE 77; RESP 16; O2SAT 97
== END 2021-09-10 03:34 | disposition home or self-care (01) ==
PROVIDERS: Emergency Provider Emergency Medicine; PCP Physician Assistant
DX: S92.422A Displaced fracture of distal phalanx of left great toe, initial encounter for closed fracture (principal); S93.122A Dislocation of metatarsophalangeal joint of left great toe, initial encounter; S91.132A Puncture wound without foreign body of left great toe without damage to nail, initial encounter; S91.105A Unspecified open wound of left lesser toe(s) without damage to nail, initial encounter; V28.0XXA Motorcycle driver injured in noncollision transport accident in nontraffic accident, initial encounter
CPT/HCPCS: 28630; 73630; 99283

== ENCOUNTER → 2022-08-26 15:39 | Outpatient (CLI) | payer OTHER, MEDICAID, SELFPAY | PROVIDERS: PCP Physician Assistant; Visit Provider Physician Assistant Medical | DX: L03.116 Cellulitis of left lower limb (principal); R60.0 Localized edema | CPT/HCPCS: 87070; 87077; 87147; 87186; 87205 ==